=== PATIENT | female | born 1975 | race African-American/Black ===

== ENCOUNTER 2024-10-04 22:26 | Emergency (ER) | payer MEDICAID, OTHER ==
[~2024-10-04] VITALS: Ht 165.1 cm; Wt 57.0 kg
[2024-10-04 22:42] VITALS: O2SAT 100
[2024-10-04] MEDS ORDERED: TETANUS, DIPHTHERIA, PERTUSSIS VAC/PF 0.5ML (>10YR OLD) IM ONE (23:30)
[2024-10-05] MEDS ORDERED: OXYC-100 MT (01:16)
[2024-10-05] MEDS ORDERED: KETO10TA2 MT (01:17)
[2024-10-05] MEDS: TETANUS, DIPHTHERIA, PERTUSSIS VAC/PF 0.5ML (>10YR OLD) IM ONE (01:38)
[2024-10-05] MEDS: KETOROLAC 15MG/ML VIAL IM ONE (01:38)
[2024-10-05] MEDS: KETOROLAC 15MG/ML VIAL IM NR (01:46)
[2024-10-05 02:40] VITALS: BP 112/65; PULSE 89; RESP 18; TEMP 36.78072; O2SAT 100
== END 2024-10-05 02:40 | disposition home or self-care (01) ==
LOC: ER 22:26
DX: S86.812A Strain of other muscle(s) and tendon(s) at lower leg level, left leg, initial encounter (principal); W19.XXXA Unspecified fall, initial encounter; Z88.2 Allergy status to sulfonamides; W18.39XA Other fall on same level, initial encounter; Y93.89 Activity, other specified; Y92.89 Other specified places as the place of occurrence of the external cause; Y99.8 Other external cause status
CPT/HCPCS: 73552; 73560; 73590; 73600; 73620; 99284; 90715; 90471; 96372; J1885; Z7610